=== PATIENT | male | born 1935 | race Caucasian/White ===

== ENCOUNTER → 2017-05-06 | Outpatient (CLI) | payer MEDICARE, BC ==
[~2017-05-06] MED LIST: ASPI-515 PO; CARV6.252 PO; CLOP75TA52 PO; ISOS30TA8 PO; MOME17SP INH; OMEP-110 PO; SIMV40TA3 PO; SPIR25TA PO; TORS20TA PO
== END | disposition home or self-care (01) ==
LOC: CVU 11:36
PROVIDERS: ATTEND Internal Medicine Cardiovascular Disease
DX: I31.3 Pericardial effusion (noninflammatory) (principal); I08.3 Combined rheumatic disorders of mitral, aortic and tricuspid valves; I25.10 Atherosclerotic heart disease of native coronary artery without angina pectoris; I48.2 Chronic atrial fibrillation; Z95.5 Presence of coronary angioplasty implant and graft
CPT/HCPCS: 93306

== ENCOUNTER → 2017-06-17 | Outpatient (CLI) | payer MEDICARE, BC | END | disposition home or self-care (01) | LOC: CFH 13:44 | PROVIDERS: ATTEND Internal Medicine Cardiovascular Disease | DX: I08.3 Combined rheumatic disorders of mitral, aortic and tricuspid valves (principal); I10 Essential (primary) hypertension; I31.3 Pericardial effusion (noninflammatory); I48.2 Chronic atrial fibrillation; Z79.01 Long term (current) use of anticoagulants | CPT/HCPCS: 93306 ==

== ENCOUNTER 2018-03-13 09:23 | Day surgery (SDC) | payer MEDICARE, BC ==
[~2018-03-13] VITALS: Ht 167.6 cm; Wt 73.5 kg
[2018-03-13 09:46] VITALS: BP 118/82
[2018-03-13] MEDS ORDERED: WARF2.5T PO (10:01)
[2018-03-13 10:35] LABS: INTERNATIONAL NORMALIZED RATIO 2.31 (0.93-1.1); PROTHROMBIN TIME 23.4 Seconds (9.6-11.5)
[2018-03-13] MEDS ORDERED: PROPOFOL 10 MG/ML, 20ML ONE (11:21)
[2018-03-13] MEDS ORDERED: TORS20TA PO (12:53)
== END 2018-03-13 13:33 | disposition home or self-care (01) ==
LOC: CACL 09:23
PROVIDERS: ATTEND Internal Medicine Cardiovascular Disease
DX: I35.1 Nonrheumatic aortic (valve) insufficiency (principal); I07.1 Rheumatic tricuspid insufficiency; I10 Essential (primary) hypertension; I34.0 Nonrheumatic mitral (valve) insufficiency; I48.91 Unspecified atrial fibrillation; E78.5 Hyperlipidemia, unspecified; I25.10 Atherosclerotic heart disease of native coronary artery without angina pectoris; Z95.5 Presence of coronary angioplasty implant and graft; Z79.82 Long term (current) use of aspirin; Z79.899 Other long term (current) drug therapy
CPT/HCPCS: 36415; 85610; 93312; 93320; 93325; J2704

== ENCOUNTER 2019-05-10 11:18 | Inpatient (IN) | payer MEDICARE, BC ==
[~2019-05-10] VITALS: Ht 168.9 cm; Wt 69.8 kg
[~2019-05-10 11:18] MED LIST changes: +WARF2.5T PO
[2019-05-10] MEDS ORDERED: SODIUM CHLORIDE 0.9% 1,000ML IVBOLUS ONE (12:00)
[2019-05-10] MEDS ORDERED: SODIUM CHLORIDE FLUSH 10ML SYR IVF ONE (12:00)
--- NOTE | 2019-05-10 12:22 | NUR ---
SEE TRIAGE. PT CLEANED OF LOOSE STOOL. PER FAMILY, NO HX OF BOWEL INCONTINENCE-NEW TODAY. PT DENIES ABD TENDERNESS BUT +NAUSEA SINCE YESTERDAY. PT PLACED ON ALL ROOM MONITORING. VSS AT THIS TIME. WARM BLANKETS PROVIDED, CALL LIGHT WITHIN REACH, FAMILY AT BS. PT AND FAMILY UPDATED ON POC.
--- NOTE | 2019-05-10 12:28 | NUR ---
PT TO XRAY
[2019-05-10 12:36] LABS: BASOPHILS # (AUTO) 0.03 x10^3/uL (0-0.1); BASOPHILS % (AUTO) 0 % (0-1); EOSINOPHILS # (AUTO) 0.15 x10^3/uL (0-0.4); EOSINOPHILS % (AUTO) 2 % (1-7); INTERNATIONAL NORMALIZED RATIO 1.26 (0.93-1.1); LYMPHOCYTES # (AUTO) 0.79 x10^3/uL (1-3.4); LYMPHOCYTES % (AUTO) 9 % (22-44); MD NO; MEAN CORPUSCULAR HEMOGLOBIN 34.9 pg (27.5-34.5); MEAN CORPUSCULAR HGB CONC 33.8 g/dL (33.2-36.2); MEAN CORPUSCULAR VOLUME 103.3 fL (81-97); MEAN PLATELET VOLUME 7.7 fL (7.4-10.4); MONOCYTES # (AUTO) 1.34 x10^3/uL (0.2-0.8); MONOCYTES % (AUTO) 15 % (2-9); NEUTROPHILS # (AUTO) 6.84 x10^3/uL (1.8-6.8); NEUTROPHILS % (AUTO) 75 % (42-75); PLATELET COUNT 268 x10^3/uL (130-400); PROTHROMBIN TIME 13.1 Seconds (9.6-11.5); RED BLOOD COUNT 3.16 x10^6/uL (4.38-5.82); RED CELL DISTRIBUTION WIDTH 18.9 % (9.4-14.8)
[2019-05-10 12:40] LABS: ALBUMIN 3.4 g/dL (3.4-5.0); ANION GAP 10 mmol/L (5-15); CALCIUM 9.3 mg/dL (8.5-10.1); CHLORIDE 94 mmol/L (98-107)
[2019-05-10 12:46] LABS: ALANINE AMINOTRANSFERASE 32 U/L (12-78); ALKALINE PHOSPHATASE 176 U/L (45-117); BILIRUBIN,TOTAL 1.1 mg/dL (0.2-1.0); CREATININE 2.13 mg/dL (0.7-1.3); TOTAL PROTEIN 7.7 g/dL (6.4-8.2)
[2019-05-10 13:02] LABS: TROPONIN I 0.143 ng/mL (0.000-0.045)
[2019-05-10 13:18] LABS: CULTURE INDICATED? NO; MICROSCOPIC NOT IND
[2019-05-10] MEDS ORDERED: ASPIRIN 81 MG TABLET CHEW ONE (13:25)
[2019-05-10] MEDS ORDERED: APIX2.5T PO (13:39)
[2019-05-10] MEDS ORDERED: ATOR40TA PO (13:39)
[2019-05-10] MEDS ORDERED: ASPI-515 PO (13:49)
[2019-05-10] MEDS ORDERED: FURO-92 PO ×2 (13:49→17:55)
[2019-05-10] MEDS ORDERED: A/C/1TAB3 PO (13:49)
[2019-05-10] MEDS ORDERED: TAFA20CA PO (13:49)
[2019-05-10] MEDS ORDERED: CHRO1TAB7 PO (13:49)
[2019-05-10] MEDS ORDERED: MULT-718 PO (13:49)
--- NOTE | 2019-05-10 13:52 | NUR ---
MED GIVEN PER ERP ORDER. MED REC COMPLETED. VSS/UPDATED IN COMPUTER.
[2019-05-10] MEDS ORDERED: ASPIRIN 81 MG TABLET CHEW PO ONE (14:00)
--- NOTE | 2019-05-10 14:41 | NUR ---
REPORT TO VANESSA STOUT READY FOR TRANSPORT.
[2019-05-10 15:24] LABS: RAPID INFLUENZA A Negative (Negative); RAPID INFLUENZA B Negative (Negative)
[2019-05-10] MEDS ORDERED: hydrALAzine 20 MG/ML, 1ML IVPush PRN (15:30)
[2019-05-10] MEDS ORDERED: ONDANSETRON 2MG/ML, 2ML IVPush PRN (15:30)
[2019-05-10] MEDS ORDERED: ACETAMINOPHEN 325 MG TABLET PO PRN (15:30)
[2019-05-10] MEDS ORDERED: METOCLOPRAMIDE 5 MG/ML, 2ML IVPush PRN (15:30)
[2019-05-10] MEDS ORDERED: LABETALOL 5MG/ML, 20ML IVPush PRN (15:30)
[2019-05-10 15:34] VITALS: BP 100/69
[2019-05-10 16:49] LABS: TROPONIN I 0.145 ng/mL (0.000-0.045)
[2019-05-10] MEDS ORDERED: CEFTRIAXONE PMX 1GM/50ML 50 ML IV SCH (17:00)
[2019-05-10 17:43] VITALS: BP 100/69
[2019-05-10] MEDS ORDERED: ASPI-496 PO (17:55)
[2019-05-10 20:07] VITALS: BP 97/62
[2019-05-10] MEDS: TAFAMIDIS MEGLUMINE PO SCH (21:00)
[2019-05-10] MEDS ORDERED: DOXYCYCLINE 100MG TABLET PO SCH (21:00)
[2019-05-10] MEDS ORDERED: CARVEDILOL 6.25 MG TABLET PO SCH (21:00)
[2019-05-10] MEDS: APIXABAN 2.5 MG TABLET PO SCH (21:15)
[2019-05-10] MEDS: ATORVASTATIN 40 MG TABLET PO SCH (21:15)
[2019-05-10 22:04] LABS: TROPONIN I 0.156 ng/mL (0.000-0.045)
[2019-05-10 23:36] LABS: CLOSTRIDIUM DIFFICILE ANTIGEN NEGATIVE; CLOSTRIDIUM DIFFICILE TOXIN NEGATIVE (Negative)
[2019-05-11 05:15] LABS: BASOPHILS # (AUTO) 0.05 x10^3/uL (0-0.1); BASOPHILS % (AUTO) 1 % (0-1); EOSINOPHILS # (AUTO) 0.37 x10^3/uL (0-0.4); EOSINOPHILS % (AUTO) 4 % (1-7); LYMPHOCYTES # (AUTO) 0.86 x10^3/uL (1-3.4); LYMPHOCYTES % (AUTO) 10 % (22-44); MD NO; MEAN CORPUSCULAR HEMOGLOBIN 34.9 pg (27.5-34.5); MEAN CORPUSCULAR VOLUME 105.8 fL (81-97); MEAN PLATELET VOLUME 7.9 fL (7.4-10.4); MONOCYTES # (AUTO) 1.39 x10^3/uL (0.2-0.8); MONOCYTES % (AUTO) 16 % (2-9); NEUTROPHILS # (AUTO) 6.09 x10^3/uL (1.8-6.8); NEUTROPHILS % (AUTO) 70 % (42-75); PLATELET COUNT 248 x10^3/uL (130-400); RED BLOOD COUNT 2.94 x10^6/uL (4.38-5.82); RED CELL DISTRIBUTION WIDTH 18.5 % (9.4-14.8)
[2019-05-11 05:25] VITALS: BP 92/55
[2019-05-11 05:30] LABS: CHLORIDE 96 mmol/L (98-107)
[2019-05-11 06:08] LABS: % IRON SATURATION 14 % (20-55); ALANINE AMINOTRANSFERASE 29 U/L (12-78); ALBUMIN 3.1 g/dL (3.4-5.0); ALKALINE PHOSPHATASE 158 U/L (45-117); ANION GAP 10 mmol/L (5-15); BILIRUBIN,TOTAL 1.2 mg/dL (0.2-1.0); CALCIUM 8.7 mg/dL (8.5-10.1); CHOL/HDL RATIO 1.3; CHOLESTEROL, TOTAL 80 mg/dL (140-239); CREATININE 1.75 mg/dL (0.7-1.3); HDL CHOL % 79 % (26-37); HDL CHOLESTEROL (DIRECT) 63 mg/dL (40-60); IRON LEVEL 38 mcg/dL (65-175); LDL CHOLESTEROL,CALCULATED 11 mg/dL (54-169); LDL/HDL RATIO 0.2 (0.5-3.0); PREALBUMIN 20.1 mg/dL (20.0-40.0); TOTAL IRON BINDING CAPACITY 277 mcg/dL (250-450); TRIGLYCERIDES 32 mg/dL (50-200); VLDL CHOLESTEROL 6 mg/dL (0-25)
[2019-05-11 08:21] VITALS: BP 93/60
[2019-05-11] MEDS: ASPIRIN 81 MG TABLET EC PO SCH (09:45)
[2019-05-11] MEDS: APIXABAN 2.5 MG TABLET PO SCH ×2 (09:45→20:12)
[2019-05-11] MEDS: FUROSEMIDE 40 MG TABLET PO SCH (12:19)
[2019-05-11 13:48] VITALS: BP 108/67
[2019-05-11] MEDS ORDERED: METOCLOPRAMIDE 5 MG/ML, 2ML IVPush PRN (16:00)
[2019-05-11 20:11] VITALS: BP 105/69
[2019-05-11] MEDS: ATORVASTATIN 40 MG TABLET PO SCH (20:12)
[2019-05-11] MEDS: TAFAMIDIS MEGLUMINE PO SCH (20:13)
[2019-05-12 00:06] VITALS: BP 100/66
[2019-05-12 04:53] LABS: MEAN CORPUSCULAR HEMOGLOBIN 34.8 pg (27.5-34.5); MEAN CORPUSCULAR HGB CONC 33.1 g/dL (33.2-36.2); MEAN PLATELET VOLUME 8.1 fL (7.4-10.4); PLATELET COUNT 237 x10^3/uL (130-400); RED BLOOD COUNT 2.76 x10^6/uL (4.38-5.82)
[2019-05-12 04:57] LABS: ALBUMIN 2.9 g/dL (3.4-5.0); ANION GAP 10 mmol/L (5-15); CALCIUM 8.6 mg/dL (8.5-10.1); CHLORIDE 98 mmol/L (98-107)
[2019-05-12 05:00] LABS: ALANINE AMINOTRANSFERASE 27 U/L (12-78); ALKALINE PHOSPHATASE 141 U/L (45-117); BILIRUBIN,TOTAL 1.4 mg/dL (0.2-1.0); CREATININE 1.62 mg/dL (0.7-1.3); TOTAL PROTEIN 6.6 g/dL (6.4-8.2)
[2019-05-12 05:32] LABS: BASOPHILS # (AUTO) 0.04 x10^3/uL (0-0.1); BASOPHILS % (AUTO) 0 % (0-1); EOSINOPHILS # (AUTO) 0.52 x10^3/uL (0-0.4); EOSINOPHILS % (AUTO) 5 % (1-7); LYMPHOCYTES # (AUTO) 0.85 x10^3/uL (1-3.4); LYMPHOCYTES % (AUTO) 9 % (22-44); MD MORPH REVIEW ONLY; MONOCYTES # (AUTO) 1.65 x10^3/uL (0.2-0.8); MONOCYTES % (AUTO) 17 % (2-9); NEUTROPHILS # (AUTO) 6.79 x10^3/uL (1.8-6.8); NEUTROPHILS % (AUTO) 69 % (42-75)
[2019-05-12 05:33] LABS: ANISOCYTOSIS 1+
[2019-05-12 05:34] LABS: CRENATED 1+; OVALOCYTES 1+; POLYCHROMASIA 1+
[2019-05-12 05:35] LABS: <PLATELET ESTIMATE> ADEQUATE; <PLT MORPHOLOGY> NORMAL PLT MORPH
[2019-05-12 07:10] VITALS: BP 91/59
[2019-05-12] MEDS ORDERED: SPIR25TA PO (09:39)
[2019-05-12] MEDS ORDERED: APIX2.5T PO (09:39)
[2019-05-12] MEDS ORDERED: ASPI-496 PO (09:39)
[2019-05-12] MEDS ORDERED: FURO-92 PO (09:39)
[2019-05-12] MEDS ORDERED: ATOR40TA PO (09:39)
[2019-05-12] MEDS: APIXABAN 2.5 MG TABLET PO SCH (09:50)
[2019-05-12] MEDS: FUROSEMIDE 40 MG TABLET PO SCH (09:50)
[2019-05-12] MEDS: ASPIRIN 81 MG TABLET EC PO SCH (09:50)
== END 2019-05-12 14:04 | disposition home or self-care (01) | DRG 280 ==
LOC: ED 12:51 → EDIP 13:51 → 5SO 15:24 → DCLOUNGE 05-12 13:33
PROVIDERS: ADMIT Emergency Medicine; ATTEND Family Medicine
DX: I13.0 Hypertensive heart and chronic kidney disease with heart failure and stage 1 through stage 4 chronic kidney disease, or unspecified chronic kidney disease (principal); I21.A1 Myocardial infarction type 2; I50.33 Acute on chronic diastolic (congestive) heart failure; T82.855A Stenosis of coronary artery stent, initial encounter; E85.4 Organ-limited amyloidosis; E87.1 Hypo-osmolality and hyponatremia; N17.9 Acute kidney failure, unspecified; E87.2 Acidosis; I31.3 Pericardial effusion (noninflammatory); I48.20 Chronic atrial fibrillation, unspecified; J98.11 Atelectasis; I08.3 Combined rheumatic disorders of mitral, aortic and tricuspid valves; I43 Cardiomyopathy in diseases classified elsewhere; D53.9 Nutritional anemia, unspecified; E83.41 Hypermagnesemia; I25.10 Atherosclerotic heart disease of native coronary artery without angina pectoris; N18.9 Chronic kidney disease, unspecified; R19.7 Diarrhea, unspecified; Z79.01 Long term (current) use of anticoagulants; Z82.3 Family history of stroke; Z87.891 Personal history of nicotine dependence; Z95.5 Presence of coronary angioplasty implant and graft; Y83.1 Surgical operation with implant of artificial internal device as the cause of abnormal reaction of the patient, or of later complication, without mention of misadventure at the time of the procedure
CPT/HCPCS: 36415; 71045; 74022; 74176; 80053; 80061; 81003; 82306; 82607; 82728; 83036; 83540; 83550; 83605; 83735; 83880; 84100; 84134; 84145; 84443; 84484; 85025; 85610; 87040; 87046; 87324; 87400; 87427; 89055; 93005; 93306; G0378; J7030

== ENCOUNTER → 2019-07-13 | Outpatient (CLI) | payer MEDICARE, BC ==
[~2019-07-13] MED LIST changes: +A/C/1TAB3 PO; +APIX2.5T PO; +ASPI-496 PO; +ATOR40TA PO; +CHRO1TAB7 PO; +FURO-92 PO; +MULT-718 PO; +SIMV40TA20 PO; -SIMV40TA3 PO; +TAFA20CA PO
== END | disposition home or self-care (01) ==
LOC: CVU 13:57
PROVIDERS: ATTEND Nurse Practitioner Family
DX: I08.8 Other rheumatic multiple valve diseases (principal); I31.3 Pericardial effusion (noninflammatory); I48.91 Unspecified atrial fibrillation; I25.10 Atherosclerotic heart disease of native coronary artery without angina pectoris
CPT/HCPCS: 93306

== ENCOUNTER 2019-07-18 13:32 | Outpatient (CLI) | payer MEDICARE, BC ==
[2019-07-18] MEDS ORDERED: LIDOCAINE 1%, 10ML ONE (13:43)
== END 2019-07-18 23:59 | disposition home or self-care (01) ==
LOC: RAD 13:32
PROVIDERS: ATTEND Internal Medicine Cardiovascular Disease
DX: J90 Pleural effusion, not elsewhere classified (principal)
CPT/HCPCS: 32555; 83615; 84157; 87015; 87070; 87075; 87116; 87205; 87206; 88112; 88305; 89051

== ENCOUNTER 2020-07-20 14:27 | Inpatient (IN) | payer MEDICARE, BC ==
[~2020-07-20] VITALS: Ht 170.2 cm; Wt 75.1 kg
[~2020-07-20 14:27] MED LIST changes: -ASPI-515 PO; +ASPI-963 PO; -WARF2.5T PO; +WARF2.5T2 PO
--- NOTE | 2020-07-20 15:23 | NUR ---
CC OF ACUTE CONFUSION. PT [place] AND HAS ANSWERED MOST OF THE ASSESSMENT QUESTIONS. STATES YESTERDAY AM WHEN PATIENT WOKE UP HE HAD A HARD TIME WALKING, PT WAS GRABBING RAILINGS AND SINGLETON WHICH IS NOT NORMAL FOR HIM. PTS ALSO STATING PT HAS NOT BEEN ANSWERING HER QUESTIONS OVER THE LAST TWO DAYS, ISNT SURE IF HIS HEARING HAS BECOME WORSE OR SOMETHING ELSE IS GOING ON. PER BASELINE OF PT IS A&0X4. PT THINKS HE IS IN INCLINE, PT RE-ORIENTED AND A FEW MOMENTS LATER ABLE TO TELL MD HE IS IN [place].
[2020-07-20 15:27] LABS: MEAN CORPUSCULAR HGB CONC 34.7 g/dL (33.2-36.2); MEAN PLATELET VOLUME 7.6 fL (7.4-10.4); PLATELET COUNT 236 x10^3/uL (130-400); RED BLOOD COUNT 4.29 x10^6/uL (4.38-5.82); RED CELL DISTRIBUTION WIDTH 17.9 % (9.4-14.8)
[2020-07-20] MEDS ORDERED: DOCU-131 PO (15:29)
[2020-07-20] MEDS ORDERED: SODIUM CHLORIDE FLUSH 10ML SYR IVF ONE (15:30)
[2020-07-20 15:37] LABS: ALANINE AMINOTRANSFERASE 35 U/L (12-78); ALBUMIN 3.9 g/dL (3.4-5.0); ANION GAP 10 mmol/L (5-15); CALCIUM 9.5 mg/dL (8.5-10.1); CHLORIDE 92 mmol/L (98-107); CREATININE 1.87 mg/dL (0.7-1.3)
[2020-07-20 15:40] LABS: INTERNATIONAL NORMALIZED RATIO 1.17 (0.93-1.1); PROTHROMBIN TIME 12.5 Seconds (9.6-11.5)
--- NOTE | 2020-07-20 15:45 | NUR ---
PT TO IMAGING
[2020-07-20 15:48] LABS: ALKALINE PHOSPHATASE 145 U/L (45-117); BILIRUBIN,TOTAL 1.8 mg/dL (0.2-1.0); TOTAL PROTEIN 8.1 g/dL (6.4-8.2)
[2020-07-20 15:53] LABS: MD YES
[2020-07-20 16:01] LABS: BAND#(MANUAL) 1.66 x10^3/uL; BANDS%(MANUAL) 6 % (0-7); LYMPH#(MANUAL) 0.28 x10^3/uL (1-3.4); LYMPHS% (MANUAL) 1 % (22-44); METAMYELOCYTES# (MANUAL) 0.55 x10^3/uL (0-0); METAMYELOCYTES% (MANUAL) 2 % (0-1); MONOS#(MANUAL) 2.21 x10^3/uL (0.3-2.7); MONOS% (MANUAL) 8 % (2-9); SEG#(MANUAL) 22.91 x10^3/uL (1.8-6.8); SEGS% (MANUAL) 83 % (42-75)
[2020-07-20 16:02] LABS: ANISOCYTOSIS 1+; OVALOCYTES 1+; PMNS WITH VACUOLES 1+
[2020-07-20 16:03] LABS: <PLATELET ESTIMATE> ADEQUATE; <PLT MORPHOLOGY> NORMAL PLT MORPH
[2020-07-20] MEDS ORDERED: OMNIPAQUE 350 MG/ML, 100ML BOTTLE ONE (16:10)
--- NOTE | 2020-07-20 16:20 | NUR ---
UA COLLECTED AND SENT TO LAB
[2020-07-20] MEDS ORDERED: CEFTRIAXONE PMX 1GM/50ML 50 ML IV ONE (16:30)
[2020-07-20 16:31] LABS: MICROSCOPIC AUTO
[2020-07-20 16:32] LABS: CHLORIDE,URINE RANDOM 19 mmol/L; POTASSIUM,URINE RANDOM 85 mmol/L; SODIUM,URINE RANDOM 10 mmol/L
[2020-07-20] MEDS ORDERED: CEFTRIAXONE PMX 1GM/50ML 50 ML ONE (16:37)
[2020-07-20] MEDS ORDERED: SODIUM CHLORIDE 0.9% 1,000 ML IV ONE (17:30)
[2020-07-20] MEDS ORDERED: ACETAMINOPHEN 325 MG TABLET PO PRN (18:00)
[2020-07-20] MEDS ORDERED: ONDANSETRON ODT 4 MG PO PRN (18:00)
[2020-07-20] MEDS ORDERED: ONDANSETRON 2MG/ML, 2ML IVPush PRN (18:00)
--- NOTE | 2020-07-20 18:16 | NUR ---
REPORT GIVEN TO LAYLA BRADLEY
[2020-07-20 18:42] VITALS: BP 99/63
[2020-07-20] MEDS ORDERED: TAFA61CA PO (19:38)
[2020-07-20] MEDS: DOCUSATE 100 MG CAPSULE PO SCH (19:49)
[2020-07-20] MEDS ORDERED: [UNRECOGNIZED DRUG - REMARK] PO SCH (21:00)
[2020-07-20] MEDS ORDERED: TAFAMIDIS MEGLUMINE PO SCH (21:00)
[2020-07-20] MEDS: VYNDAMAX 61 MG PO SCH (22:01)
[2020-07-20] MEDS: SODIUM CHLORIDE 0.9% 1,000 ML IV SCH (22:01)
[2020-07-20] MEDS: MULTIVITAMINS/MINERALS TABLET PO SCH (22:01)
[2020-07-20] MEDS: APIXABAN 2.5 MG TABLET PO SCH (22:01)
[2020-07-20] MEDS: ATORVASTATIN 80 MG TABLET PO SCH (22:01)
[2020-07-21 00:26] VITALS: BP 91/57
[2020-07-21 05:00] LABS: BASOPHILS % (AUTO) 1 % (0-1); EOSINOPHILS % (AUTO) 1 % (1-7); LYMPHOCYTES % (AUTO) 7 % (22-44); MEAN CORPUSCULAR HEMOGLOBIN 35.4 pg (27.5-34.5); MEAN CORPUSCULAR HGB CONC 34.9 g/dL (33.2-36.2); MONOCYTES % (AUTO) 16 % (2-9); NEUTROPHILS % (AUTO) 76 % (42-75); PLATELET COUNT 201 x10^3/uL (130-400); RED BLOOD COUNT 3.89 x10^6/uL (4.38-5.82); RED CELL DISTRIBUTION WIDTH 17.1 % (9.4-14.8)
[2020-07-21 05:06] LABS: ANION GAP 8 mmol/L (5-15); CALCIUM 9.2 mg/dL (8.5-10.1); CHLORIDE 95 mmol/L (98-107); CREATININE 1.79 mg/dL (0.7-1.3)
[2020-07-21 05:49] LABS: MD SCAN
[2020-07-21 06:31] VITALS: BP 105/64
[2020-07-21] MEDS: APIXABAN 2.5 MG TABLET PO SCH ×2 (08:35→21:27)
[2020-07-21] MEDS: MULTIVITAMINS/MINERALS TABLET PO SCH (08:35)
[2020-07-21] MEDS: DOCUSATE 100 MG CAPSULE PO SCH ×2 (08:36→21:27)
[2020-07-21] MEDS ORDERED: [UNRECOGNIZED DRUG - OTHER] PO SCH (09:00)
[2020-07-21] MEDS ORDERED: CLOPIDOGREL 75 MG TABLET PO SCH (09:00)
[2020-07-21 12:03] VITALS: BP 104/68
[2020-07-21] MEDS: SODIUM CHLORIDE 0.9% 1,000 ML IV SCH (13:18)
[2020-07-21] MEDS ORDERED: CEFTRIAXONE PMX 1GM/50ML 50 ML IV SCH (16:00)
[2020-07-21] MEDS ORDERED: SODIUM CHLORIDE 0.9% 1,000 ML IV SCH (18:00)
[2020-07-21 19:07] VITALS: BP 107/67
[2020-07-21] MEDS: VYNDAMAX 61 MG PO SCH (21:00)
[2020-07-21] MEDS: ATORVASTATIN 80 MG TABLET PO SCH (21:27)
[2020-07-22] MEDS ORDERED: SODIUM CHLORIDE 0.9% 1,000 ML IV SCH
[2020-07-22 00:22] VITALS: BP 98/56
[2020-07-22 05:45] LABS: BASOPHILS % (AUTO) 1 % (0-1); EOSINOPHILS % (AUTO) 2 % (1-7); LYMPHOCYTES % (AUTO) 11 % (22-44); MEAN CORPUSCULAR HEMOGLOBIN 35.4 pg (27.5-34.5); MEAN PLATELET VOLUME 8.1 fL (7.4-10.4); MONOCYTES % (AUTO) 17 % (2-9); NEUTROPHILS % (AUTO) 70 % (42-75); PLATELET COUNT 192 x10^3/uL (130-400); RED BLOOD COUNT 3.91 x10^6/uL (4.38-5.82); RED CELL DISTRIBUTION WIDTH 17.3 % (9.4-14.8)
[2020-07-22 05:46] LABS: ANION GAP 10 mmol/L (5-15); CALCIUM 8.7 mg/dL (8.5-10.1); CHLORIDE 97 mmol/L (98-107)
[2020-07-22 05:47] LABS: CREATININE 1.72 mg/dL (0.7-1.3)
[2020-07-22 06:29] LABS: MD SCAN
[2020-07-22 06:41] VITALS: BP 105/72
[2020-07-22] MEDS: APIXABAN 2.5 MG TABLET PO SCH (07:44)
[2020-07-22] MEDS: MULTIVITAMINS/MINERALS TABLET PO SCH (07:44)
[2020-07-22] MEDS: DOCUSATE 100 MG CAPSULE PO SCH (07:44)
[2020-07-22 10:27] LABS: RAPID INFLUENZA A Negative (Negative); RAPID INFLUENZA B Negative (Negative)
[2020-07-22 12:02] VITALS: BP 102/62
[2020-07-22] MEDS ORDERED: AMOX-291 PO (12:19)
[2020-07-22] MEDS ORDERED: DOXY100C2 PO (12:19)
[2020-07-22] MEDS ORDERED: HYDR-3341 PO (12:23)
== END 2020-07-22 15:28 | disposition home health service (06) | DRG 871 ==
LOC: ED 16:45 → EDIP 17:26 → 4WST 18:32 → DCLOUNGE 07-22 14:58
PROVIDERS: ADMIT Internal Medicine; ATTEND Internal Medicine
DX: A41.9 Sepsis, unspecified organism (principal); G93.41 Metabolic encephalopathy; I63.511 Cerebral infarction due to unspecified occlusion or stenosis of right middle cerebral artery; E87.1 Hypo-osmolality and hyponatremia; I50.32 Chronic diastolic (congestive) heart failure; N17.9 Acute kidney failure, unspecified; I48.20 Chronic atrial fibrillation, unspecified; J98.11 Atelectasis; I43 Cardiomyopathy in diseases classified elsewhere; E85.4 Organ-limited amyloidosis; I31.3 Pericardial effusion (noninflammatory); E87.5 Hyperkalemia; E83.41 Hypermagnesemia; E83.42 Hypomagnesemia; H91.90 Unspecified hearing loss, unspecified ear; I08.1 Rheumatic disorders of both mitral and tricuspid valves; I11.0 Hypertensive heart disease with heart failure; I65.21 Occlusion and stenosis of right carotid artery; I25.10 Atherosclerotic heart disease of native coronary artery without angina pectoris; E79.0 Hyperuricemia without signs of inflammatory arthritis and tophaceous disease; I95.9 Hypotension, unspecified; I65.23 Occlusion and stenosis of bilateral carotid arteries; Z79.01 Long term (current) use of anticoagulants; Z82.3 Family history of stroke; I25.2 Old myocardial infarction; Z95.5 Presence of coronary angioplasty implant and graft; Z95.818 Presence of other cardiac implants and grafts; Z79.899 Other long term (current) drug therapy; Z79.891 Long term (current) use of opiate analgesic
CPT/HCPCS: 36415; 70450; 70496; 70498; 70551; 71045; 80048; 80053; 81001; 82436; 83605; 83735; 83930; 83935; 84133; 84300; 84443; 84550; 85025; 85610; 87040; 87400; 93005; 99291; G0378; J0696; Q9967; J7030